=== PATIENT | male | born 1995 ===

== ENCOUNTER 2022-10-05 10:59 | Outpatient (CLI) | payer OTHER | END 2022-10-05 11:00 | disposition home or self-care (01) | LOC: CSHCP 10:59 | PROVIDERS: ATTEND Chiropractor | DX: I25.9 Chronic ischemic heart disease, unspecified (principal); J18.9 Pneumonia, unspecified organism; I51.7 Cardiomegaly; I51.9 Heart disease, unspecified | CPT/HCPCS: 71046; 93306; 94060; 94760 ==